=== PATIENT | male | born 1990 | race Asian ===

== ENCOUNTER 2023-05-19 23:05 | Emergency (ER) | payer OTHER ==
[~2023-05-19] VITALS: Ht 175.3 cm; Wt 93.3 kg
[2023-05-19] MEDS ORDERED: NORV5TAB PO (23:11)
[2023-05-19] MEDS ORDERED: AMIT10TA7 PO (23:11)
[2023-05-20] MEDS: NS 1,000 ML IV ONE (00:13)
[2023-05-20 00:27] LABS: BASO % 0.3 % (0.0-1.0); EOS # 0.1 10^3/uL (0.0-0.5); EOS % 0.4 % (0.0-3.0); HEMATOCRIT 52.5 % (42.0-52.0); LYMPH # 0.8 10^3/uL (1.5-5.0); LYMPH % 5.7 % (24.0-44.0); MEAN CORPUSCULAR HEMOGLOBIN 33.1 pg (27.0-33.0); MEAN CORPUSCULAR HGB CONC 34.3 g/dl (32.0-36.5); MEAN CORPUSCULAR VOLUME 96.7 fl (80.0-96.0); MONO # 0.4 10^3/uL (0.0-0.8); MONO % 2.7 % (2.0-8.0); NEUTROPHILS # 12.5 10^3/uL (1.5-8.5); NEUTROPHILS % 90.5 % (36.0-66.0); PLATELET COUNT, AUTOMATED 228 10^3/uL (150-450); RED BLOOD COUNT 5.43 10^6/uL (4.30-6.10); WHITE BLOOD COUNT 13.8 10^3/uL (4.0-10.0)
[2023-05-20 00:47] LABS: LIPASE 39 U/L (12-53)
[2023-05-20 00:48] LABS: ALBUMIN 4.9 G/DL (3.2-5.2); ALKALINE PHOSPHATASE 86 U/L (46-116); ALT/SGPT 29 U/L (7.0-40); AST/SGOT 27 U/L (<34); BILIRUBIN,DIRECT 0.2 MG/DL (<0.4); BILIRUBIN,TOTAL 0.9 MG/DL (0.3-1.2); BLOOD UREA NITROGEN 19 MG/DL (9-23); CALCIUM LEVEL 10.3 MG/DL (8.5-10.1); CARBON DIOXIDE LEVEL 27 MMOL/L (20-31); CHLORIDE LEVEL 107 MMOL/L (98-107); CREATININE FOR GFR 1.12 MG/DL (0.70-1.30); GLOMERULAR FILTRATION RATE > 60.0 (>60); GLUCOSE, FASTING 99 MG/DL (60-100); POTASSIUM SERUM 4.2 MMOL/L (3.5-5.1); SODIUM LEVEL 142 MMOL/L (136-145); TOTAL PROTEIN 8.5 G/DL (5.7-8.2)
[2023-05-20] MEDS ORDERED: ONDA4TAB6 PO (01:59)
[2023-05-20] MEDS: ONDANSETRON 4MG ORAL DISINTEGRATING TAB PO ONE (02:05)
[2023-05-20] MEDS: ONDANSETRON 4MG 2ML VIAL IV ONE (02:25)
[2023-05-20 02:30] VITALS: BP 131/73; TEMP 98.9; O2SAT 96
== END 2023-05-20 02:40 | disposition home or self-care (01) ==
LOC: M ED 23:05
DX: A08.4 Viral intestinal infection, unspecified (principal); I10 Essential (primary) hypertension; Z79.899 Other long term (current) drug therapy
CPT/HCPCS: 80047; 80048; 80076; 83690; 85025; 87486; 87507; 87581; 87633; 87798; 93041; 94760; 96361; 96374; 99284; J2405